=== PATIENT | female | born 1930 | race African-American/Black ===

== ENCOUNTER 2017-04-19 16:06 | Inpatient (IN) | payer MEDICARE ==
[~2017-04-19] VITALS: Ht 167.6 cm; Wt 49.4 kg
[~2017-04-19 16:06] MED LIST: ATENOLOL; HCTZ; KLOR-CON; LEVOTHYROXINE; LISINOPRIL; PROVASTATIN
[2017-04-19] MEDS ORDERED: FUROSEMIDE 40MG/4ML VIAL IVP ONE (17:30)
[2017-04-19 18:13] LABS: MEAN CORPUSCULAR HEMOGLOBIN 18.1 pg (28.0-32.0); MEAN CORPUSCULAR VOLUME 65.8 fL (81.0-99.0); MEAN PLATELET VOLUME 8.6 fl (7.4-10.4); PLATELET 340 x1000/uL (130-400); RED BLOOD CELL COUNT 3.01 mill/uL (4.2-5.4)
[2017-04-19 18:20] LABS: INR 1.3; PROTHROMBIN TIME 13.8 sec (9.4-11.6)
[2017-04-19 18:24] LABS: HEMATOCRIT. 19.8 % (36.0-48.0); HEMOGLOBIN. 5.5 g/dL (12.0-16.0)
[2017-04-19 18:28] LABS: CARBON DIOXIDE 30 mEq/L (21-32); CHLORIDE 105 mEq/L (98-107)
[2017-04-19 19:01] LABS: NUCLEATED RED BLOOD CELLS 1 /100 WBC; PLATELET ESTIMATE NORMAL
[2017-04-19 23:00] VITALS: BP 105/57
[2017-04-20] VITALS (11 sets, daily range): BP systolic 90–118; BP diastolic 49–73
[2017-04-20] MEDS ORDERED: FUROSEMIDE 20MG/2ML VIAL IVP NR
[2017-04-20] MEDS ORDERED: ACETAMINOPHEN 325MG TABLET PO PRN
[2017-04-20] MEDS ORDERED: FURO-152 PO (01:01)
[2017-04-20] MEDS ORDERED: CHOL100046 PO (01:01)
[2017-04-20] MEDS ORDERED: LEVO100T9 PO (09:23)
[2017-04-20] MEDS ORDERED: MEDICATION NOT ON FORMULARY EA (Cholecalciferol (Vitamin D) 1 CAP) PO SCH (09:30)
[2017-04-20 10:11] LABS: HEMATOCRIT. 22.7 % (36.0-48.0); MEAN CORPUSCULAR HEMOGLOBIN 19.2 pg (28.0-32.0); MEAN CORPUSCULAR VOLUME 67.3 fL (81.0-99.0); MEAN PLATELET VOLUME 9.1 fl (7.4-10.4); PLATELET 322 x1000/uL (130-400); RED BLOOD CELL COUNT 3.37 mill/uL (4.2-5.4); RED CELL DISTRIBUTION WIDTH 26.9 % (11.6-14.6)
[2017-04-20 10:18] LABS: HEMOGLOBIN. 6.5 g/dL (12.0-16.0)
[2017-04-20] MEDS: LEVOTHYROXINE SODIUM 100MCG TABLET PO SCH (11:55)
[2017-04-20] MEDS: FUROSEMIDE 40MG TABLET PO SCH (11:55)
[2017-04-20] MEDS: CHOLECALCIFEROL (D3) 1000 UNIT TABLET PO SCH (11:55)
[2017-04-20] MEDS: PANTOPRAZOLE 40MG DR TABLET PO SCH (11:55)
[2017-04-20] MEDS ORDERED: MAGNESIUM HYDROXIDE 400MG/5ML 30ML UDC PO NR (14:38)
[2017-04-20 16:51] LABS: TOTAL IRON BINDING CAPACITY 370 ug/dL (250-450)
[2017-04-20 18:06] LABS: FOLIC ACID (FOLATE) SERUM 8.1 ng/mL (>5.38)
[2017-04-20] MEDS: TEMAZEPAM 15MG CAPSULE PO PRN (23:20)
[2017-04-21] VITALS: BP 120/76
[2017-04-21 00:57] LABS: HEMATOCRIT 25.3 % (36.0-48.0); HEMOGLOBIN 7.6 g/dL (12.0-16.0)
[2017-04-21 04:00] VITALS: BP 93/56
[2017-04-21 06:47] LABS: NUCLEATED RED BLOOD CELLS 1 /100 WBC; PLATELET ESTIMATE NORMAL
[2017-04-21] MEDS: PANTOPRAZOLE 40MG DR TABLET PO SCH (06:51)
[2017-04-21] MEDS: LEVOTHYROXINE SODIUM 100MCG TABLET PO SCH (06:51)
[2017-04-21 08:00] VITALS: BP 102/63
[2017-04-21] MEDS: CHOLECALCIFEROL (D3) 1000 UNIT TABLET PO SCH (08:45)
[2017-04-21] MEDS: FUROSEMIDE 40MG TABLET PO SCH (08:45)
[2017-04-21 12:00] VITALS: BP 97/58
[2017-04-21 16:00] VITALS: BP 98/61
[2017-04-21 21:00] VITALS: BP 102/60
[2017-04-21] MEDS: TEMAZEPAM 15MG CAPSULE PO PRN (23:54)
[2017-04-22] VITALS: BP 104/63
[2017-04-22 04:00] VITALS: BP 97/60
[2017-04-22] MEDS: PANTOPRAZOLE 40MG DR TABLET PO SCH (06:27)
[2017-04-22] MEDS: LEVOTHYROXINE SODIUM 100MCG TABLET PO SCH (06:27)
[2017-04-22 08:00] VITALS: BP 104/68
[2017-04-22] MEDS: FUROSEMIDE 40MG TABLET PO SCH (08:51)
[2017-04-22] MEDS: CHOLECALCIFEROL (D3) 1000 UNIT TABLET PO SCH (08:51)
[2017-04-22 12:00] VITALS: BP 124/74
[2017-04-22 16:00] VITALS: BP 110/76
[2017-04-22] MEDS: ONDANSETRON HCL 4MG/2ML VIAL IV PRN (16:37)
[2017-04-22 20:00] VITALS: BP 90/51
[2017-04-22] MEDS: SODIUM CHLORIDE 0.9% 1,000 ML IV SCH (21:35)
[2017-04-23] VITALS (11 sets, daily range): BP systolic 86–146; BP diastolic 54–88
[2017-04-23 06:03] LABS: BG CARBOXYHEMOGLOBIN 1.1 % (0.5-1.5); BG DEOXYHEMOGLOBIN 0.2 % (0.0-5.0); BG FRACTION INSPIRED OXYGEN 100; BG HCO3 ACT 30.6 mmol/L (22.0-26.0); BG METHEMOGLOBIN 0.5 % (0.0-1.5); BG OXYGEN SATURATION 99.8 % (92.0-98.5); BG OXYHEMOGLOBIN 98.2 % (94.0-97.0); BG PCO2 67.3 mmHg (35.0-45.0); BG PH 7.276 (7.350-7.450); BG PO2 241.9 mmHg (75.0-100.0); BG SAMPLE SITE RIGHT BRACHIAL; BG TOTAL HEMOGLOBIN 8.1 g/dL (12.0-18.0); BG VENT MODE MASK - NRB
[2017-04-23] MEDS: LEVOTHYROXINE SODIUM 100MCG TABLET PO SCH (09:16)
[2017-04-23] MEDS: PANTOPRAZOLE 40MG DR TABLET PO SCH (09:16)
[2017-04-23] MEDS: SODIUM CHLORIDE 0.9% 1,000 ML IV SCH (09:17)
[2017-04-23 09:22] LABS: BG BASE EXCESS 1.6 mmol/L (-2.0-2.0); BG FRACTION INSPIRED OXYGEN 100; BG HCO3 ACT 30.5 mmol/L (22.0-26.0); BG METHEMOGLOBIN 0.7 % (0.0-1.5); BG OXYHEMOGLOBIN 98.3 % (94.0-97.0); BG PCO2 83.1 mmHg (35.0-45.0); BG PH 7.183 (7.350-7.450); BG PO2 342.9 mmHg (75.0-100.0); BG SAMPLE SITE RIGHT BRACHIAL; BG TOTAL HEMOGLOBIN 7.3 g/dL (12.0-18.0); BG VENT MODE MASK - NRB
[2017-04-23 09:59] LABS: HEMATOCRIT. 26.8 % (36.0-48.0); HEMOGLOBIN. 7.5 g/dL (12.0-16.0); MEAN CORPUSCULAR HEMOGLOBIN 20.5 pg (28.0-32.0); MEAN CORPUSCULAR VOLUME 73.8 fL (81.0-99.0); PLATELET 328 x1000/uL (130-400); RED BLOOD CELL COUNT 3.64 mill/uL (4.2-5.4); RED CELL DISTRIBUTION WIDTH 27.4 % (11.6-14.6)
[2017-04-23 10:28] LABS: TROPONIN I 2.3 ng/mL (0.00-0.04)
[2017-04-23] MEDS ORDERED: FUROSEMIDE 40MG/4ML VIAL IVP NR (10:45)
[2017-04-23] MEDS: SODIUM CHLORIDE 0.45% 1,000 ML IV SCH (11:40)
[2017-04-23] MEDS: CHOLECALCIFEROL (D3) 1000 UNIT TABLET PO SCH (11:44)
[2017-04-23 14:02] LABS: NUCLEATED RED BLOOD CELLS 1 /100 WBC; PLATELET ESTIMATE NORMAL
[2017-04-23] MEDS ORDERED: SORBITOL 70% SOLN 30ML PO NR (15:15)
[2017-04-23] MEDS: SENNOSIDES/DOCUSATE SOD 8.6/50MG TABLET PO SCH (17:16)
[2017-04-23] MEDS ORDERED: SODIUM POLYSTYRENE SULFONATE 15 G/60 ML BOT PO NR (18:45)
[2017-04-23 19:12] LABS: BG BASE EXCESS 4.8 mmol/L (-2.0-2.0); BG CARBOXYHEMOGLOBIN 0.9 % (0.5-1.5); BG DEOXYHEMOGLOBIN 6.2 % (0.0-5.0); BG FRACTION INSPIRED OXYGEN 28; BG HCO3 ACT 32.4 mmol/L (22.0-26.0); BG METHEMOGLOBIN 0.5 % (0.0-1.5); BG OXYGEN SATURATION 93.7 % (92.0-98.5); BG OXYHEMOGLOBIN 92.4 % (94.0-97.0); BG PCO2 70.1 mmHg (35.0-45.0); BG PH 7.283 (7.350-7.450); BG PO2 73.8 mmHg (75.0-100.0); BG SAMPLE SITE RIGHT BRACHIAL; BG TOTAL HEMOGLOBIN 7.7 g/dL (12.0-18.0); BG VENT MODE NASAL CANNULA
[2017-04-24] VITALS (15 sets, daily range): BP systolic 95–125; BP diastolic 51–99
[2017-04-24] MEDS: SODIUM CHLORIDE 0.45% 1,000 ML IV SCH ×2 (06:26→16:51)
[2017-04-24] MEDS: LEVOTHYROXINE SODIUM 100MCG TABLET PO SCH (06:30)
[2017-04-24] MEDS: PANTOPRAZOLE 40MG DR TABLET PO SCH (06:30)
[2017-04-24 07:12] LABS: HEMATOCRIT. 25.3 % (36.0-48.0); MEAN CORPUSCULAR HEMOGLOBIN 20.2 pg (28.0-32.0); MEAN CORPUSCULAR VOLUME 73.5 fL (81.0-99.0); MEAN PLATELET VOLUME 9.1 fl (7.4-10.4); PLATELET 297 x1000/uL (130-400); RED BLOOD CELL COUNT 3.44 mill/uL (4.2-5.4); RED CELL DISTRIBUTION WIDTH 27.1 % (11.6-14.6)
[2017-04-24 08:09] LABS: TROPONIN I 2.6 ng/mL (0.00-0.04)
[2017-04-24] MEDS: CHOLECALCIFEROL (D3) 1000 UNIT TABLET PO SCH (09:10)
[2017-04-24] MEDS: SENNOSIDES/DOCUSATE SOD 8.6/50MG TABLET PO SCH ×2 (09:10→17:05)
[2017-04-24] MEDS ORDERED: LACTULOSE 20G/30ML UDC PO NR (16:00)
[2017-04-24 17:09] LABS: NUCLEATED RED BLOOD CELLS 1 /100 WBC; PLATELET ESTIMATE NORMAL
[2017-04-24 17:26] LABS: BG BASE EXCESS 2.6 mmol/L (-2.0-2.0); BG CARBOXYHEMOGLOBIN 1.1 % (0.5-1.5); BG DEOXYHEMOGLOBIN 31.6 % (0.0-5.0); BG HCO3 ACT 30.2 mmol/L (22.0-26.0); BG METHEMOGLOBIN 0.2 % (0.0-1.5); BG OXYHEMOGLOBIN 67.1 % (94.0-97.0); BG PCO2 64.3 mmHg (35.0-45.0); BG PO2 37.3 mmHg (75.0-100.0); BG SAMPLE SITE RIGHT BRACHIAL; BG TOTAL HEMOGLOBIN 10.1 g/dL (12.0-18.0); BG VENT MODE NASAL CANNULA
[2017-04-24 17:41] LABS: BG BASE EXCESS 3.3 mmol/L (-2.0-2.0); BG CARBOXYHEMOGLOBIN 1.1 % (0.5-1.5); BG DEOXYHEMOGLOBIN 13.3 % (0.0-5.0); BG HCO3 ACT 29.6 mmol/L (22.0-26.0); BG METHEMOGLOBIN 0.4 % (0.0-1.5); BG OXYGEN SATURATION 86.5 % (92.0-98.5); BG OXYHEMOGLOBIN 85.2 % (94.0-97.0); BG PCO2 54.2 mmHg (35.0-45.0); BG PH 7.355 (7.350-7.450); BG PO2 53.4 mmHg (75.0-100.0); BG SAMPLE SITE RIGHT BRACHIAL; BG TOTAL HEMOGLOBIN 9.6 g/dL (12.0-18.0); BG VENT MODE NASAL CANNULA
[2017-04-24 18:41] LABS: HEMATOCRIT 28.6 % (36.0-48.0); HEMOGLOBIN 8.3 g/dL (12.0-16.0)
[2017-04-24 18:47] LABS: INR 1.2; PROTHROMBIN TIME 12.2 sec (9.4-11.6)
[2017-04-24] MEDS: TEMAZEPAM 15MG CAPSULE PO PRN (22:10)
[2017-04-24] MEDS: LORAZEPAM 2MG/ML CPJ IV PRN (22:35)
[2017-04-25] VITALS (34 sets, daily range): BP systolic 89–121; BP diastolic 55–88
[2017-04-25] MEDS: SODIUM CHLORIDE 0.45% 1,000 ML IV SCH ×2 (06:38→18:30)
[2017-04-25 06:57] LABS: HEMATOCRIT. 29.2 % (36.0-48.0); HEMOGLOBIN. 8.4 g/dL (12.0-16.0); MEAN CORPUSCULAR VOLUME 73.1 fL (81.0-99.0); MEAN PLATELET VOLUME 8.8 fl (7.4-10.4); PLATELET 312 x1000/uL (130-400); RED BLOOD CELL COUNT 3.99 mill/uL (4.2-5.4); RED CELL DISTRIBUTION WIDTH 26.7 % (11.6-14.6)
[2017-04-25] MEDS: LEVOTHYROXINE SODIUM 100MCG TABLET PO SCH (07:30)
[2017-04-25] MEDS: PANTOPRAZOLE 40MG DR TABLET PO SCH (07:30)
[2017-04-25] MEDS: SENNOSIDES/DOCUSATE SOD 8.6/50MG TABLET PO SCH ×2 (09:00→17:00)
[2017-04-25] MEDS: CHOLECALCIFEROL (D3) 1000 UNIT TABLET PO SCH (09:00)
[2017-04-25 09:57] LABS: BG BASE EXCESS 5.1 mmol/L (-2.0-2.0); BG DEOXYHEMOGLOBIN 18.8 % (0.0-5.0); BG FRACTION INSPIRED OXYGEN 28; BG HCO3 ACT 33.6 mmol/L (22.0-26.0); BG METHEMOGLOBIN 0.1 % (0.0-1.5); BG OXYHEMOGLOBIN 80.1 % (94.0-97.0); BG PCO2 75.1 mmHg (35.0-45.0); BG PH 7.269 (7.350-7.450); BG PO2 48.7 mmHg (75.0-100.0); BG SAMPLE SITE LEFT BRACHIAL; BG TOTAL HEMOGLOBIN 9.9 g/dL (12.0-18.0); BG VENT MODE NASAL CANNULA
[2017-04-25 10:06] LABS: AMMONIA 38 uMol/L (<32)
[2017-04-25 11:17] LABS: PLATELET ESTIMATE NORMAL
[2017-04-25 11:50] LABS: BG BASE EXCESS 3.3 mmol/L (-2.0-2.0); BG BILEVEL POS AIRWAY PRESSURE ST=15/5; BG CARBOXYHEMOGLOBIN 0.7 % (0.5-1.5); BG DEOXYHEMOGLOBIN 1.6 % (0.0-5.0); BG FRACTION INSPIRED OXYGEN 50; BG HCO3 ACT 31.8 mmol/L (22.0-26.0); BG METHEMOGLOBIN 0.5 % (0.0-1.5); BG OXYGEN SATURATION 98.4 % (92.0-98.5); BG OXYHEMOGLOBIN 97.2 % (94.0-97.0); BG PCO2 74.3 mmHg (35.0-45.0); BG PH 7.249 (7.350-7.450); BG PO2 132.2 mmHg (75.0-100.0); BG PRESSURE SUPPORT 10; BG SAMPLE SITE RIGHT BRACHIAL; BG TOTAL HEMOGLOBIN 9.4 g/dL (12.0-18.0); BG VENT MODE MASK - BIPAP; BG VENT RATE 20 set
[2017-04-25] MEDS ORDERED: METHYLPREDNISOLONE SOD SUCC 40 MG/ML VIAL IV SCH (12:30)
[2017-04-25] MEDS ORDERED: IPRATROPIUM/ALBUTEROL 0.5-3(2.5)MG/3ML NEB HHN SCH (12:30)
[2017-04-25] MEDS: LORAZEPAM 2MG/ML CPJ IV PRN ×3 (13:20→20:08)
[2017-04-25 15:22] LABS: BG BASE EXCESS 3.5 mmol/L (-2.0-2.0); BG BILEVEL POS AIRWAY PRESSURE ST=20/5; BG DEOXYHEMOGLOBIN 2.1 % (0.0-5.0); BG FRACTION INSPIRED OXYGEN 45; BG HCO3 ACT 32.6 mmol/L (22.0-26.0); BG METHEMOGLOBIN 0.3 % (0.0-1.5); BG OXYGEN SATURATION 97.9 % (92.0-98.5); BG OXYHEMOGLOBIN 96.6 % (94.0-97.0); BG PCO2 81.1 mmHg (35.0-45.0); BG PH 7.222 (7.350-7.450); BG PO2 113.1 mmHg (75.0-100.0); BG PRESSURE SUPPORT 15; BG SAMPLE SITE RIGHT BRACHIAL; BG TOTAL HEMOGLOBIN 9.5 g/dL (12.0-18.0); BG VENT MODE MASK - BIPAP; BG VENT RATE 20 set
[2017-04-25] MEDS ORDERED: ETOMIDATE 2MG/ML 10ML VIAL IV ONE (16:30)
[2017-04-25] MEDS ORDERED: SUCCINYLCHOLINE CHLORIDE 200MG/10ML VIAL IV ONE (16:30)
[2017-04-25 16:53] LABS: BG BASE EXCESS 0.3 mmol/L (-2.0-2.0); BG CARBOXYHEMOGLOBIN 0.3 % (0.5-1.5); BG DEOXYHEMOGLOBIN 0.3 % (0.0-5.0); BG FRACTION INSPIRED OXYGEN 100; BG HCO3 ACT 25.1 mmol/L (22.0-26.0); BG METHEMOGLOBIN 0.6 % (0.0-1.5); BG OXYGEN SATURATION 99.7 % (92.0-98.5); BG OXYHEMOGLOBIN 98.8 % (94.0-97.0); BG PCO2 41.3 mmHg (35.0-45.0); BG PH 7.402 (7.350-7.450); BG PO2 420.8 mmHg (75.0-100.0); BG SAMPLE SITE RIGHT BRACHIAL; BG TIDAL VOLUME(mL) 500 mL; BG TOTAL HEMOGLOBIN 9.5 g/dL (12.0-18.0); BG VENT MODE VENT - A/C; BG VENT RATE 20 set
[2017-04-25] MEDS: ONDANSETRON HCL 4MG/2ML VIAL IV PRN ×2 (20:05→20:07)
[2017-04-25] MEDS: METHYLPREDNISOLONE SOD SUCC 40 MG/ML VIAL IV SCH (22:23)
[2017-04-25] MEDS: SILDENAFIL CITRATE 20MG TABLET PO SCH (22:24)
[2017-04-26] VITALS (75 sets, daily range): BP systolic 71–124; BP diastolic 30–83
[2017-04-26] MEDS: LORAZEPAM 2MG/ML CPJ IV PRN ×4 (04:07→23:57)
[2017-04-26] MEDS: ONDANSETRON HCL 4MG/2ML VIAL IV PRN ×2 (04:07→23:58)
[2017-04-26 05:48] LABS: HEMATOCRIT. 28.4 % (36.0-48.0); HEMOGLOBIN. 8.7 g/dL (12.0-16.0); MEAN CORPUSCULAR HEMOGLOBIN 22.1 pg (28.0-32.0); MEAN CORPUSCULAR VOLUME 71.9 fL (81.0-99.0); MEAN PLATELET VOLUME 9.2 fl (7.4-10.4); PLATELET 279 x1000/uL (130-400); RED BLOOD CELL COUNT 3.94 mill/uL (4.2-5.4); RED CELL DISTRIBUTION WIDTH 27.5 % (11.6-14.6)
[2017-04-26] MEDS: SILDENAFIL CITRATE 20MG TABLET PO SCH ×3 (06:47→21:18)
[2017-04-26] MEDS: METHYLPREDNISOLONE SOD SUCC 40 MG/ML VIAL IV SCH ×3 (06:48→21:17)
[2017-04-26] MEDS: PANTOPRAZOLE 40MG DR TABLET PO SCH (06:48)
[2017-04-26] MEDS: FUROSEMIDE 40MG/4ML VIAL IVP SCH ×2 (06:48→17:15)
[2017-04-26] MEDS: LEVOTHYROXINE SODIUM 100MCG TABLET PO SCH (06:48)
[2017-04-26 07:18] LABS: TROPONIN I 2.3 ng/mL (0.00-0.04)
[2017-04-26] MEDS ORDERED: LIDOCAINE HCL 1% 20ML VIAL (Pyxis) INJ ONE (09:06)
[2017-04-26] MEDS: SENNOSIDES/DOCUSATE SOD 8.6/50MG TABLET PO SCH ×2 (12:19→17:15)
[2017-04-26] MEDS: CHOLECALCIFEROL (D3) 1000 UNIT TABLET PO SCH (12:19)
[2017-04-26] MEDS: NOREPINEPHRINE 4 MG in DEXT 5% WATER 246 ML IV PRN (13:06)
[2017-04-26 15:53] LABS: PLATELET ESTIMATE NORMAL
[2017-04-26 22:21] LABS: BG BASE EXCESS 8.3 mmol/L (-2.0-2.0); BG CARBOXYHEMOGLOBIN 0.5 % (0.5-1.5); BG DEOXYHEMOGLOBIN 10.6 % (0.0-5.0); BG FRACTION INSPIRED OXYGEN 35; BG HCO3 ACT 30.7 mmol/L (22.0-26.0); BG METHEMOGLOBIN 0.3 % (0.0-1.5); BG OXYGEN SATURATION 89.3 % (92.0-98.5); BG OXYHEMOGLOBIN 88.6 % (94.0-97.0); BG PCO2 34.3 mmHg (35.0-45.0); BG PO2 51.1 mmHg (75.0-100.0); BG SAMPLE SITE RIGHT RADIAL; BG TIDAL VOLUME(mL) 450 mL; BG VENT MODE VENT - A/C; BG VENT RATE 14 set
[2017-04-27] VITALS (87 sets, daily range): BP systolic 79–131; BP diastolic 51–98
[2017-04-27] MEDS: IPRATROPIUM/ALBUTEROL 0.5-3(2.5)MG/3ML NEB HHN PRN ×2 (00:25→05:15)
[2017-04-27 05:53] LABS: HEMATOCRIT. 32.3 % (36.0-48.0); HEMOGLOBIN. 9.6 g/dL (12.0-16.0); MEAN CORPUSCULAR HEMOGLOBIN 21.2 pg (28.0-32.0); MEAN CORPUSCULAR VOLUME 71.6 fL (81.0-99.0); MEAN PLATELET VOLUME 8.9 fl (7.4-10.4); PLATELET 279 x1000/uL (130-400); RED BLOOD CELL COUNT 4.51 mill/uL (4.2-5.4); RED CELL DISTRIBUTION WIDTH 28.5 % (11.6-14.6)
[2017-04-27] MEDS: FUROSEMIDE 40MG/4ML VIAL IVP SCH (06:14)
[2017-04-27] MEDS: METHYLPREDNISOLONE SOD SUCC 40 MG/ML VIAL IV SCH ×2 (06:14→13:36)
[2017-04-27] MEDS: LEVOTHYROXINE SODIUM 100MCG TABLET PO SCH (06:14)
[2017-04-27] MEDS: PANTOPRAZOLE 40MG DR TABLET PO SCH (06:15)
[2017-04-27] MEDS: SILDENAFIL CITRATE 20MG TABLET PO SCH ×3 (06:15→21:08)
[2017-04-27 08:07] LABS: BG BASE EXCESS 4.6 mmol/L (-2.0-2.0); BG CARBOXYHEMOGLOBIN 0.2 % (0.5-1.5); BG DEOXYHEMOGLOBIN 2.5 % (0.0-5.0); BG FRACTION INSPIRED OXYGEN 50; BG HCO3 ACT 28.6 mmol/L (22.0-26.0); BG METHEMOGLOBIN 0.5 % (0.0-1.5); BG OXYGEN SATURATION 97.5 % (92.0-98.5); BG OXYHEMOGLOBIN 96.8 % (94.0-97.0); BG PCO2 40.3 mmHg (35.0-45.0); BG PH 7.469 (7.350-7.450); BG PO2 97.2 mmHg (75.0-100.0); BG SAMPLE SITE RIGHT RADIAL; BG TIDAL VOLUME(mL) 400 mL; BG TOTAL HEMOGLOBIN 9.6 g/dL (12.0-18.0); BG VENT MODE VENT - A/C; BG VENT RATE 14 set
[2017-04-27] MEDS: SENNOSIDES/DOCUSATE SOD 8.6/50MG TABLET PO SCH ×2 (09:04→18:16)
[2017-04-27] MEDS: CHOLECALCIFEROL (D3) 1000 UNIT TABLET PO SCH (09:04)
[2017-04-27] MEDS: NOREPINEPHRINE 4 MG in DEXT 5% WATER 246 ML IV PRN (09:04)
[2017-04-27 09:35] LABS: PLATELET ESTIMATE NORMAL
[2017-04-27] MEDS: PIPERACILLIN/TAZ 3.375G PREMIX 50 ML IV SCH ×2 (10:34→18:16)
[2017-04-27] MEDS ORDERED: VANCOMYCIN 1 G PREMIX 200 ML IV SCH (11:00)
[2017-04-27] MEDS ORDERED: MAGNESIUM 2 G PREMIX 50 ML IV SCH (12:00)
[2017-04-27] MEDS: MAGNESIUM OXIDE 400MG TABLET NG SCH (13:36)
[2017-04-27] MEDS: LORAZEPAM 2MG/ML CPJ IV PRN ×2 (16:30→21:34)
[2017-04-28] VITALS (94 sets, daily range): BP systolic 78–135; BP diastolic 49–91
[2017-04-28] MEDS: PIPERACILLIN/TAZ 3.375G PREMIX 50 ML IV SCH ×3 (01:31→17:25)
[2017-04-28] MEDS: SILDENAFIL CITRATE 20MG TABLET PO SCH ×3 (05:22→21:21)
[2017-04-28] MEDS: LEVOTHYROXINE SODIUM 100MCG TABLET PO SCH (05:23)
[2017-04-28 05:43] LABS: HEMATOCRIT. 29.9 % (36.0-48.0); HEMOGLOBIN. 8.9 g/dL (12.0-16.0); MEAN CORPUSCULAR HEMOGLOBIN 21.2 pg (28.0-32.0); MEAN CORPUSCULAR VOLUME 71.1 fL (81.0-99.0); MEAN PLATELET VOLUME 8.8 fl (7.4-10.4); PLATELET 262 x1000/uL (130-400); RED BLOOD CELL COUNT 4.21 mill/uL (4.2-5.4); RED CELL DISTRIBUTION WIDTH 27.7 % (11.6-14.6)
[2017-04-28 07:10] LABS: T4 FREE 0.89 ng/dL (0.76-1.46)
[2017-04-28 07:27] LABS: PHOSPHORUS 2.4 mg/dL (2.5-4.9)
[2017-04-28] MEDS: IPRATROPIUM/ALBUTEROL 0.5-3(2.5)MG/3ML NEB HHN PRN ×4 (08:02→20:36)
[2017-04-28] MEDS: METHYLPREDNISOLONE SOD SUCC 40 MG/ML VIAL IV SCH (08:05)
[2017-04-28] MEDS: SENNOSIDES/DOCUSATE SOD 8.6/50MG TABLET PO SCH ×2 (08:06→16:48)
[2017-04-28] MEDS: MAGNESIUM OXIDE 400MG TABLET NG SCH (08:06)
[2017-04-28] MEDS: CHOLECALCIFEROL (D3) 1000 UNIT TABLET PO SCH (08:06)
[2017-04-28] MEDS ORDERED: FUROSEMIDE 40MG/4ML VIAL IVP SCH (09:00)
[2017-04-28] MEDS ORDERED: VANCOMYCIN 750 MG PREMIX 150 ML IV SCH (10:00)
[2017-04-28] MEDS: LORAZEPAM 2MG/ML CPJ IV PRN ×4 (10:43→22:36)
[2017-04-28 14:06] LABS: BG BASE EXCESS 10.8 mmol/L (-2.0-2.0); BG CARBOXYHEMOGLOBIN 0.4 % (0.5-1.5); BG DEOXYHEMOGLOBIN 5.6 % (0.0-5.0); BG FRACTION INSPIRED OXYGEN 50; BG HCO3 ACT 33.5 mmol/L (22.0-26.0); BG METHEMOGLOBIN 0.2 % (0.0-1.5); BG OXYGEN SATURATION 94.4 % (92.0-98.5); BG OXYHEMOGLOBIN 93.8 % (94.0-97.0); BG PH 7.575 (7.350-7.450); BG PO2 64.8 mmHg (75.0-100.0); BG SAMPLE SITE LEFT RADIAL; BG TIDAL VOLUME(mL) 400 mL; BG VENT MODE VENT - A/C; BG VENT RATE 14 set
[2017-04-28] MEDS ORDERED: FUROSEMIDE 40MG/4ML VIAL IVP NR (15:45)
[2017-04-28] MEDS: LACTULOSE 20G/30ML UDC PO PRN (16:47)
[2017-04-28] MEDS: MORPHINE SULFATE 4 MG/ML CPJ (NOT FOR IM USE) IV PRN (22:14)
[2017-04-28] MEDS: VANCOMYCIN 750 MG PREMIX 150 ML IV SCH (23:29)
[2017-04-28 23:53] LABS: PLATELET ESTIMATE NORMAL
[2017-04-29] VITALS (88 sets, daily range): BP systolic 72–123; BP diastolic 47–85
[2017-04-29] MEDS: IPRATROPIUM/ALBUTEROL 0.5-3(2.5)MG/3ML NEB HHN PRN ×6 (00:14→23:52)
[2017-04-29] MEDS: LORAZEPAM 2MG/ML CPJ IV PRN ×3 (00:37→22:33)
[2017-04-29] MEDS: PIPERACILLIN/TAZ 3.375G PREMIX 50 ML IV SCH ×3 (01:35→17:18)
[2017-04-29] MEDS: MORPHINE SULFATE 4 MG/ML CPJ (NOT FOR IM USE) IV PRN ×3 (02:57→22:01)
[2017-04-29 05:18] LABS: HEMATOCRIT. 29.6 % (36.0-48.0); HEMOGLOBIN. 8.9 g/dL (12.0-16.0); MEAN CORPUSCULAR HEMOGLOBIN 21.5 pg (28.0-32.0); MEAN CORPUSCULAR VOLUME 71.5 fL (81.0-99.0); MEAN PLATELET VOLUME 8.5 fl (7.4-10.4); PLATELET 248 x1000/uL (130-400); RED BLOOD CELL COUNT 4.13 mill/uL (4.2-5.4); RED CELL DISTRIBUTION WIDTH 28.3 % (11.6-14.6)
[2017-04-29 05:34] LABS: CARBON DIOXIDE 36 mEq/L (21-32); CHLORIDE 99 mEq/L (98-107)
[2017-04-29] MEDS: LEVOTHYROXINE SODIUM 100MCG TABLET PO SCH (06:07)
[2017-04-29] MEDS: SILDENAFIL CITRATE 20MG TABLET PO SCH ×3 (06:07→22:00)
[2017-04-29] MEDS: NOREPINEPHRINE 4 MG in DEXT 5% WATER 246 ML IV PRN (07:03)
[2017-04-29 07:27] LABS: BG BASE EXCESS 9.3 mmol/L (-2.0-2.0); BG CARBOXYHEMOGLOBIN 0.2 % (0.5-1.5); BG DEOXYHEMOGLOBIN 1.8 % (0.0-5.0); BG FRACTION INSPIRED OXYGEN 50; BG HCO3 ACT 35.1 mmol/L (22.0-26.0); BG METHEMOGLOBIN 0.3 % (0.0-1.5); BG OXYGEN SATURATION 98.2 % (92.0-98.5); BG OXYHEMOGLOBIN 97.7 % (94.0-97.0); BG PH 7.423 (7.350-7.450); BG PO2 115.8 mmHg (75.0-100.0); BG SAMPLE SITE RIGHT RADIAL; BG TIDAL VOLUME(mL) 400 mL; BG TOTAL HEMOGLOBIN 9.8 g/dL (12.0-18.0); BG VENT MODE VENT - A/C; BG VENT RATE 14 set
[2017-04-29] MEDS: METHYLPREDNISOLONE SOD SUCC 40 MG/ML VIAL IV SCH (08:18)
[2017-04-29] MEDS: CHOLECALCIFEROL (D3) 1000 UNIT TABLET PO SCH (08:19)
[2017-04-29] MEDS: MAGNESIUM OXIDE 400MG TABLET NG SCH (08:19)
[2017-04-29] MEDS: SENNOSIDES/DOCUSATE SOD 8.6/50MG TABLET PO SCH ×2 (08:19→17:19)
[2017-04-29] MEDS: PANTOPRAZOLE SODIUM 40 MG/VIAL IV SCH (08:19)
[2017-04-29 08:39] LABS: PLATELET ESTIMATE NORMAL
[2017-04-29] MEDS ORDERED: FUROSEMIDE 100MG/10ML VIAL IVP SCH (09:00)
[2017-04-29] MEDS: VANCOMYCIN 750 MG PREMIX 150 ML IV SCH (18:02)
[2017-04-29] MEDS ORDERED: FUROSEMIDE 40MG/4ML VIAL IVP NR (19:45)
[2017-04-29] MEDS: SODIUM CHL 0.45% + KCL 20MEQ/L 1,000 ML IV SCH (21:44)
[2017-04-30] VITALS (89 sets, daily range): BP systolic 34–145; BP diastolic 13–102
[2017-04-30] MEDS: MORPHINE SULFATE 4 MG/ML CPJ (NOT FOR IM USE) IV PRN ×4 (00:30→14:22)
[2017-04-30] MEDS: NOREPINEPHRINE 4 MG in DEXT 5% WATER 246 ML IV PRN ×2 (01:56→20:41)
[2017-04-30] MEDS: PIPERACILLIN/TAZ 3.375G PREMIX 50 ML IV SCH ×3 (01:57→17:16)
[2017-04-30] MEDS: IPRATROPIUM/ALBUTEROL 0.5-3(2.5)MG/3ML NEB HHN PRN ×3 (03:51→19:57)
[2017-04-30] MEDS: LORAZEPAM 2MG/ML CPJ IV PRN ×4 (05:51→23:55)
[2017-04-30] MEDS: LEVOTHYROXINE SODIUM 100MCG TABLET PO SCH (05:52)
[2017-04-30] MEDS: SILDENAFIL CITRATE 20MG TABLET PO SCH ×3 (05:52→22:57)
[2017-04-30 05:59] LABS: HEMATOCRIT. 34.7 % (36.0-48.0); HEMOGLOBIN. 10.4 g/dL (12.0-16.0); MEAN CORPUSCULAR HEMOGLOBIN 21.6 pg (28.0-32.0); MEAN CORPUSCULAR VOLUME 72.4 fL (81.0-99.0); MEAN PLATELET VOLUME 9.1 fl (7.4-10.4); PLATELET 281 x1000/uL (130-400); RED CELL DISTRIBUTION WIDTH 28.3 % (11.6-14.6)
[2017-04-30 06:35] LABS: CHLORIDE 95 mEq/L (98-107)
[2017-04-30 07:11] LABS: CARBON DIOXIDE 37 mEq/L (21-32)
[2017-04-30] MEDS: METHYLPREDNISOLONE SOD SUCC 40 MG/ML VIAL IV SCH (08:40)
[2017-04-30] MEDS: SENNOSIDES/DOCUSATE SOD 8.6/50MG TABLET PO SCH ×2 (08:40→17:17)
[2017-04-30] MEDS: MAGNESIUM OXIDE 400MG TABLET NG SCH (08:40)
[2017-04-30] MEDS: PANTOPRAZOLE SODIUM 40 MG/VIAL IV SCH (08:40)
[2017-04-30] MEDS: CHOLECALCIFEROL (D3) 1000 UNIT TABLET PO SCH (08:40)
[2017-04-30] MEDS: FUROSEMIDE 40MG/4ML VIAL IVP SCH (08:40)
[2017-04-30 09:23] LABS: PLATELET ESTIMATE NORMAL
[2017-04-30] MEDS: VANCOMYCIN 750 MG PREMIX 150 ML IV SCH (11:23)
[2017-04-30] MEDS: MIDODRINE HCL 2.5MG TABLET NG SCH ×2 (13:58→17:16)
[2017-04-30] MEDS: METOCLOPRAMIDE HCL 10MG/2ML VIAL IV SCH (20:41)
[2017-05-01] VITALS (100 sets, daily range): BP systolic 78–143; BP diastolic 35–104
[2017-05-01] MEDS: IPRATROPIUM/ALBUTEROL 0.5-3(2.5)MG/3ML NEB HHN PRN ×2 (00:03→04:17)
[2017-05-01] MEDS: PIPERACILLIN/TAZ 3.375G PREMIX 50 ML IV SCH ×3 (01:45→17:40)
[2017-05-01] MEDS: METOCLOPRAMIDE HCL 10MG/2ML VIAL IV SCH ×4 (01:45→17:40)
[2017-05-01] MEDS: MORPHINE SULFATE 4 MG/ML CPJ (NOT FOR IM USE) IV PRN ×4 (03:52→22:39)
[2017-05-01] MEDS: LORAZEPAM 2MG/ML CPJ IV PRN ×5 (04:15→19:30)
[2017-05-01] MEDS: VANCOMYCIN 750 MG PREMIX 150 ML IV SCH (05:44)
[2017-05-01 06:10] LABS: BASOPHILS % 0.4 % (0.0-2.0); EOSINOPHILS % 0.7 % (0.0-5.0); HEMATOCRIT. 31.7 % (36.0-48.0); HEMOGLOBIN. 9.7 g/dL (12.0-16.0); LYMPHOCYTES % 8.6 % (20.0-50.0); MEAN CORPUSCULAR VOLUME 71.9 fL (81.0-99.0); MEAN PLATELET VOLUME 8.9 fl (7.4-10.4); MONOCYTES % 6.3 % (2.0-8.0); PLATELET 255 x1000/uL (130-400); RED CELL DISTRIBUTION WIDTH 28.8 % (11.6-14.6)
[2017-05-01] MEDS: LEVOTHYROXINE SODIUM 100MCG TABLET PO SCH (06:34)
[2017-05-01] MEDS: SILDENAFIL CITRATE 20MG TABLET PO SCH ×3 (06:35→22:05)
[2017-05-01] MEDS: SODIUM CHL 0.45% + KCL 20MEQ/L 1,000 ML IV SCH (06:35)
[2017-05-01 07:26] LABS: PHOSPHORUS 1.9 mg/dL (2.5-4.9)
[2017-05-01 07:44] LABS: BG BASE EXCESS 10.1 mmol/L (-2.0-2.0); BG CARBOXYHEMOGLOBIN 0.7 % (0.5-1.5); BG DEOXYHEMOGLOBIN 1.2 % (0.0-5.0); BG FRACTION INSPIRED OXYGEN 45; BG METHEMOGLOBIN 0.3 % (0.0-1.5); BG OXYGEN SATURATION 98.8 % (92.0-98.5); BG OXYHEMOGLOBIN 97.8 % (94.0-97.0); BG PCO2 49.1 mmHg (35.0-45.0); BG PH 7.471 (7.350-7.450); BG PO2 138.8 mmHg (75.0-100.0); BG SAMPLE SITE RIGHT RADIAL; BG TIDAL VOLUME(mL) 450 mL; BG TOTAL HEMOGLOBIN 10.4 g/dL (12.0-18.0); BG VENT MODE VENT - A/C; BG VENT RATE 14 set
[2017-05-01] MEDS: NOREPINEPHRINE 4 MG in DEXT 5% WATER 246 ML IV PRN ×2 (08:06→17:41)
[2017-05-01] MEDS: PANTOPRAZOLE SODIUM 40 MG/VIAL IV SCH (09:31)
[2017-05-01] MEDS: SENNOSIDES/DOCUSATE SOD 8.6/50MG TABLET PO SCH ×2 (09:31→17:40)
[2017-05-01] MEDS: FUROSEMIDE 40MG/4ML VIAL IVP SCH (09:31)
[2017-05-01] MEDS: MAGNESIUM OXIDE 400MG TABLET NG SCH (09:31)
[2017-05-01] MEDS: MIDODRINE HCL 2.5MG TABLET NG SCH ×3 (09:31→17:41)
[2017-05-01] MEDS: METHYLPREDNISOLONE SOD SUCC 40 MG/ML VIAL IV SCH (09:31)
[2017-05-01] MEDS: CHOLECALCIFEROL (D3) 1000 UNIT TABLET PO SCH (09:32)
[2017-05-02] VITALS (97 sets, daily range): BP systolic 77–150; BP diastolic 46–101
[2017-05-02] MEDS: VANCOMYCIN 750 MG PREMIX 150 ML IV SCH (00:03)
[2017-05-02] MEDS: METOCLOPRAMIDE HCL 10MG/2ML VIAL IV SCH ×4 (00:03→17:15)
[2017-05-02] MEDS: LORAZEPAM 2MG/ML CPJ IV PRN ×5 (00:52→20:40)
[2017-05-02] MEDS: IPRATROPIUM/ALBUTEROL 0.5-3(2.5)MG/3ML NEB HHN PRN ×3 (01:53→15:51)
[2017-05-02] MEDS: PIPERACILLIN/TAZ 3.375G PREMIX 50 ML IV SCH ×3 (02:18→17:15)
[2017-05-02] MEDS: MORPHINE SULFATE 4 MG/ML CPJ (NOT FOR IM USE) IV PRN ×2 (02:18→22:22)
[2017-05-02 05:31] LABS: HEMATOCRIT. 29.9 % (36.0-48.0); HEMOGLOBIN. 9.2 g/dL (12.0-16.0); MEAN CORPUSCULAR HEMOGLOBIN 21.9 pg (28.0-32.0); MEAN CORPUSCULAR VOLUME 71.5 fL (81.0-99.0); MEAN PLATELET VOLUME 8.7 fl (7.4-10.4); PLATELET 253 x1000/uL (130-400); RED BLOOD CELL COUNT 4.19 mill/uL (4.2-5.4); RED CELL DISTRIBUTION WIDTH 28.4 % (11.6-14.6)
[2017-05-02] MEDS: LEVOTHYROXINE SODIUM 100MCG TABLET PO SCH (06:25)
[2017-05-02] MEDS: SILDENAFIL CITRATE 20MG TABLET PO SCH ×3 (06:26→21:21)
[2017-05-02 07:02] LABS: NUCLEATED RED BLOOD CELLS 1 /100 WBC; PLATELET ESTIMATE NORMAL
[2017-05-02] MEDS: NOREPINEPHRINE 4 MG in DEXT 5% WATER 246 ML IV PRN (07:26)
[2017-05-02] MEDS: CHOLECALCIFEROL (D3) 1000 UNIT TABLET PO SCH (08:23)
[2017-05-02] MEDS: PANTOPRAZOLE SODIUM 40 MG/VIAL IV SCH (08:23)
[2017-05-02] MEDS: METHYLPREDNISOLONE SOD SUCC 40 MG/ML VIAL IV SCH (08:23)
[2017-05-02] MEDS: SENNOSIDES/DOCUSATE SOD 8.6/50MG TABLET PO SCH ×2 (08:23→17:14)
[2017-05-02] MEDS: MAGNESIUM OXIDE 400MG TABLET NG SCH (08:23)
[2017-05-02] MEDS: MIDODRINE HCL 2.5MG TABLET NG SCH ×3 (08:23→17:15)
[2017-05-02] MEDS: FUROSEMIDE 40MG/4ML VIAL IVP SCH (08:23)
[2017-05-02 08:29] LABS: BG BASE EXCESS 10.9 mmol/L (-2.0-2.0); BG CARBOXYHEMOGLOBIN 0.9 % (0.5-1.5); BG DEOXYHEMOGLOBIN 1.1 % (0.0-5.0); BG FRACTION INSPIRED OXYGEN 45; BG HCO3 ACT 33.8 mmol/L (22.0-26.0); BG METHEMOGLOBIN 0.5 % (0.0-1.5); BG OXYGEN SATURATION 98.9 % (92.0-98.5); BG OXYHEMOGLOBIN 97.5 % (94.0-97.0); BG PCO2 38.3 mmHg (35.0-45.0); BG PH 7.564 (7.350-7.450); BG PO2 124.2 mmHg (75.0-100.0); BG SAMPLE SITE LEFT RADIAL; BG TIDAL VOLUME(mL) 400 mL; BG TOTAL HEMOGLOBIN 10.6 g/dL (12.0-18.0); BG VENT MODE VENT - A/C; BG VENT RATE 14 set
[2017-05-02] MEDS ORDERED: POTASSIUM PHOS,M-BASIC-D-BASIC 15 MMOL in DEXT 5% WATER 245 ML IV NR (10:30)
[2017-05-02] MEDS: LACTULOSE 20G/30ML UDC PO PRN (13:36)
[2017-05-02] MEDS: NOREPINEPHRINE 8 MG in DEXT 5% WATER 242 ML IV PRN (15:13)
[2017-05-02] MEDS: SODIUM CHL 0.45% + KCL 20MEQ/L 1,000 ML IV SCH (17:15)
[2017-05-03] VITALS (100 sets, daily range): BP systolic 73–136; BP diastolic 39–97
[2017-05-03] MEDS: METOCLOPRAMIDE HCL 10MG/2ML VIAL IV SCH ×3 (00:24→21:36)
[2017-05-03] MEDS: PIPERACILLIN/TAZ 3.375G PREMIX 50 ML IV SCH ×3 (01:23→17:01)
[2017-05-03] MEDS: LORAZEPAM 2MG/ML CPJ IV PRN ×3 (01:23→23:43)
[2017-05-03] MEDS: MORPHINE SULFATE 4 MG/ML CPJ (NOT FOR IM USE) IV PRN ×4 (02:27→23:42)
[2017-05-03] MEDS: NOREPINEPHRINE 8 MG in DEXT 5% WATER 242 ML IV PRN ×2 (05:01→22:55)
[2017-05-03 06:11] LABS: HEMATOCRIT. 31.8 % (36.0-48.0); HEMOGLOBIN. 9.6 g/dL (12.0-16.0); MEAN CORPUSCULAR HEMOGLOBIN 21.4 pg (28.0-32.0); MEAN CORPUSCULAR VOLUME 71.4 fL (81.0-99.0); MEAN PLATELET VOLUME 9.7 fl (7.4-10.4); PLATELET 280 x1000/uL (130-400); RED BLOOD CELL COUNT 4.46 mill/uL (4.2-5.4); RED CELL DISTRIBUTION WIDTH 28.1 % (11.6-14.6)
[2017-05-03] MEDS: LEVOTHYROXINE SODIUM 100MCG TABLET PO SCH (07:01)
[2017-05-03] MEDS: SILDENAFIL CITRATE 20MG TABLET PO SCH ×3 (07:01→21:37)
[2017-05-03] MEDS: IPRATROPIUM/ALBUTEROL 0.5-3(2.5)MG/3ML NEB HHN PRN ×2 (08:02→11:59)
[2017-05-03] MEDS: MIDODRINE HCL 2.5MG TABLET NG SCH ×3 (08:26→16:24)
[2017-05-03] MEDS: METHYLPREDNISOLONE SOD SUCC 40 MG/ML VIAL IV SCH (08:26)
[2017-05-03] MEDS: PANTOPRAZOLE SODIUM 40 MG/VIAL IV SCH (08:26)
[2017-05-03] MEDS: FUROSEMIDE 40MG/4ML VIAL IVP SCH (08:26)
[2017-05-03] MEDS: SENNOSIDES/DOCUSATE SOD 8.6/50MG TABLET PO SCH ×2 (08:27→16:24)
[2017-05-03] MEDS: MAGNESIUM OXIDE 400MG TABLET NG SCH (08:27)
[2017-05-03] MEDS: CHOLECALCIFEROL (D3) 1000 UNIT TABLET PO SCH (08:27)
[2017-05-03 09:19] LABS: PLATELET ESTIMATE NORMAL
[2017-05-03] MEDS ORDERED: VANCOMYCIN 750 MG PREMIX 150 ML IV NR (12:00)
[2017-05-03] MEDS ORDERED: METOCLOPRAMIDE HCL 10MG/2ML VIAL IV SCH (14:00)
[2017-05-03] MEDS: SODIUM CHL 0.45% + KCL 20MEQ/L 1,000 ML IV SCH (23:20)
[2017-05-03 23:28] LABS: BG BASE EXCESS 9.1 mmol/L (-2.0-2.0); BG DEOXYHEMOGLOBIN 0.9 % (0.0-5.0); BG FRACTION INSPIRED OXYGEN 45; BG HCO3 ACT 32.2 mmol/L (22.0-26.0); BG METHEMOGLOBIN 0.3 % (0.0-1.5); BG OXYGEN SATURATION 99.1 % (92.0-98.5); BG OXYHEMOGLOBIN 98.8 % (94.0-97.0); BG PH 7.546 (7.350-7.450); BG PO2 156.3 mmHg (75.0-100.0); BG SAMPLE SITE RIGHT RADIAL; BG TIDAL VOLUME(mL) 400 mL; BG TOTAL HEMOGLOBIN 10.5 g/dL (12.0-18.0); BG VENT MODE VENT - A/C; BG VENT RATE 14 set
[2017-05-04] VITALS (94 sets, daily range): BP systolic 64–139; BP diastolic 39–90
[2017-05-04] MEDS: LORAZEPAM 2MG/ML CPJ IV PRN ×4 (01:42→21:18)
[2017-05-04] MEDS: MORPHINE SULFATE 4 MG/ML CPJ (NOT FOR IM USE) IV PRN ×4 (01:43→21:19)
[2017-05-04] MEDS: PIPERACILLIN/TAZ 3.375G PREMIX 50 ML IV SCH ×2 (01:43→09:08)
[2017-05-04] MEDS: METOCLOPRAMIDE HCL 10MG/2ML VIAL IV SCH ×3 (05:32→22:42)
[2017-05-04] MEDS: SILDENAFIL CITRATE 20MG TABLET PO SCH ×3 (05:32→22:47)
[2017-05-04] MEDS: LEVOTHYROXINE SODIUM 100MCG TABLET PO SCH (05:32)
[2017-05-04 05:37] LABS: HEMATOCRIT. 31.7 % (36.0-48.0); HEMOGLOBIN. 9.5 g/dL (12.0-16.0); MEAN CORPUSCULAR HEMOGLOBIN 21.3 pg (28.0-32.0); MEAN CORPUSCULAR VOLUME 71.5 fL (81.0-99.0); MEAN PLATELET VOLUME 8.9 fl (7.4-10.4); PLATELET 266 x1000/uL (130-400); RED BLOOD CELL COUNT 4.43 mill/uL (4.2-5.4); RED CELL DISTRIBUTION WIDTH 28.7 % (11.6-14.6)
[2017-05-04 07:32] LABS: BG CARBOXYHEMOGLOBIN 0.2 % (0.5-1.5); BG DEOXYHEMOGLOBIN 0.6 % (0.0-5.0); BG FRACTION INSPIRED OXYGEN 45; BG HCO3 ACT 33.2 mmol/L (22.0-26.0); BG METHEMOGLOBIN 0.2 % (0.0-1.5); BG OXYGEN SATURATION 99.4 % (92.0-98.5); BG PCO2 44.2 mmHg (35.0-45.0); BG PH 7.494 (7.350-7.450); BG PO2 188.2 mmHg (75.0-100.0); BG SAMPLE SITE RIGHT BRACHIAL; BG TIDAL VOLUME(mL) 400 mL; BG TOTAL HEMOGLOBIN 9.7 g/dL (12.0-18.0); BG VENT MODE VENT - A/C; BG VENT RATE 14 set
[2017-05-04] MEDS: IPRATROPIUM/ALBUTEROL 0.5-3(2.5)MG/3ML NEB HHN PRN ×3 (07:55→15:59)
[2017-05-04] MEDS: METHYLPREDNISOLONE SOD SUCC 40 MG/ML VIAL IV SCH (08:02)
[2017-05-04] MEDS: MIDODRINE HCL 5MG TABLET NG SCH ×3 (08:02→16:12)
[2017-05-04] MEDS: MAGNESIUM OXIDE 400MG TABLET NG SCH (08:02)
[2017-05-04] MEDS: CHOLECALCIFEROL (D3) 1000 UNIT TABLET PO SCH (08:02)
[2017-05-04] MEDS: SENNOSIDES/DOCUSATE SOD 8.6/50MG TABLET PO SCH ×2 (08:02→16:12)
[2017-05-04] MEDS: PANTOPRAZOLE SODIUM 40 MG/VIAL IV SCH (08:02)
[2017-05-04] MEDS: FUROSEMIDE 40MG/4ML VIAL IVP SCH ×2 (08:02→17:23)
[2017-05-04 09:23] LABS: NUCLEATED RED BLOOD CELLS 1 /100 WBC; PLATELET ESTIMATE NORMAL
[2017-05-04] MEDS ORDERED: SORBITOL 70% SOLN 30ML PO NR (13:30)
[2017-05-04] MEDS: NOREPINEPHRINE 8 MG in DEXT 5% WATER 242 ML IV PRN (19:39)
[2017-05-05] VITALS (98 sets, daily range): BP systolic 72–137; BP diastolic 36–100
[2017-05-05] MEDS: IPRATROPIUM/ALBUTEROL 0.5-3(2.5)MG/3ML NEB HHN PRN ×3 (01:24→19:50)
[2017-05-05] MEDS: LORAZEPAM 2MG/ML CPJ IV PRN ×2 (02:22→23:58)
[2017-05-05] MEDS: MORPHINE SULFATE 4 MG/ML CPJ (NOT FOR IM USE) IV PRN ×2 (02:23→23:47)
[2017-05-05] MEDS: SILDENAFIL CITRATE 20MG TABLET PO SCH ×3 (05:56→21:07)
[2017-05-05] MEDS: LEVOTHYROXINE SODIUM 100MCG TABLET PO SCH (05:56)
[2017-05-05] MEDS: METOCLOPRAMIDE HCL 10MG/2ML VIAL IV SCH ×3 (05:56→21:07)
[2017-05-05] MEDS: MAGNESIUM OXIDE 400MG TABLET NG SCH (08:41)
[2017-05-05] MEDS: FUROSEMIDE 40MG/4ML VIAL IVP SCH ×2 (08:41→17:37)
[2017-05-05] MEDS: METHYLPREDNISOLONE SOD SUCC 40 MG/ML VIAL IV SCH (08:41)
[2017-05-05] MEDS: SENNOSIDES/DOCUSATE SOD 8.6/50MG TABLET PO SCH ×2 (08:41→17:34)
[2017-05-05] MEDS: PANTOPRAZOLE SODIUM 40 MG/VIAL IV SCH (08:41)
[2017-05-05] MEDS: MIDODRINE HCL 5MG TABLET NG SCH ×3 (08:42→17:35)
[2017-05-05] MEDS: CHOLECALCIFEROL (D3) 1000 UNIT TABLET PO SCH (09:00)
[2017-05-05 10:35] LABS: HEMATOCRIT. 32.1 % (36.0-48.0); HEMOGLOBIN. 9.7 g/dL (12.0-16.0); MEAN CORPUSCULAR HEMOGLOBIN 21.6 pg (28.0-32.0); MEAN CORPUSCULAR VOLUME 71.1 fL (81.0-99.0); MEAN PLATELET VOLUME 9.4 fl (7.4-10.4); PLATELET 306 x1000/uL (130-400); RED BLOOD CELL COUNT 4.52 mill/uL (4.2-5.4); RED CELL DISTRIBUTION WIDTH 27.8 % (11.6-14.6)
[2017-05-05] MEDS: SODIUM CHL 0.45% + KCL 20MEQ/L 1,000 ML IV SCH (11:43)
[2017-05-05 11:58] LABS: NUCLEATED RED BLOOD CELLS 1 /100 WBC; PLATELET ESTIMATE NORMAL
[2017-05-05 13:06] LABS: BG BASE EXCESS 7.1 mmol/L (-2.0-2.0); BG CARBOXYHEMOGLOBIN 0.5 % (0.5-1.5); BG DEOXYHEMOGLOBIN 1.8 % (0.0-5.0); BG FRACTION INSPIRED OXYGEN 35; BG HCO3 ACT 34.7 mmol/L (22.0-26.0); BG METHEMOGLOBIN 0.5 % (0.0-1.5); BG OXYGEN SATURATION 98.2 % (92.0-98.5); BG OXYHEMOGLOBIN 97.2 % (94.0-97.0); BG PH 7.332 (7.350-7.450); BG PO2 127.5 mmHg (75.0-100.0); BG PRESSURE SUPPORT 15; BG SAMPLE SITE LEFT BRACHIAL; BG TOTAL HEMOGLOBIN 10.7 g/dL (12.0-18.0); BG VENT MODE VENT - CPAP
[2017-05-05] MEDS: NOREPINEPHRINE 8 MG in DEXT 5% WATER 242 ML IV PRN (18:54)
[2017-05-05] MEDS ORDERED: NICARDIPINE 50 MG in SODIUM CHLORIDE 0.9% 230 ML IV PRN (23:15)
[2017-05-06] VITALS (106 sets, daily range): BP systolic 69–144; BP diastolic 35–100
[2017-05-06 05:28] LABS: HEMATOCRIT. 32.1 % (36.0-48.0); HEMOGLOBIN. 9.6 g/dL (12.0-16.0); MEAN CORPUSCULAR HEMOGLOBIN 21.5 pg (28.0-32.0); MEAN CORPUSCULAR VOLUME 71.7 fL (81.0-99.0); MEAN PLATELET VOLUME 8.9 fl (7.4-10.4); PLATELET 283 x1000/uL (130-400); RED BLOOD CELL COUNT 4.48 mill/uL (4.2-5.4); RED CELL DISTRIBUTION WIDTH 27.6 % (11.6-14.6)
[2017-05-06] MEDS: LEVOTHYROXINE SODIUM 100MCG TABLET PO SCH (05:44)
[2017-05-06] MEDS: METOCLOPRAMIDE HCL 10MG/2ML VIAL IV SCH ×3 (05:44→21:37)
[2017-05-06] MEDS: SILDENAFIL CITRATE 20MG TABLET PO SCH ×3 (05:46→21:37)
[2017-05-06 06:25] LABS: TROPONIN I 2.2 ng/mL (0.00-0.04)
[2017-05-06 07:40] LABS: PLATELET ESTIMATE NORMAL
[2017-05-06] MEDS: FUROSEMIDE 40MG/4ML VIAL IVP SCH ×2 (09:03→16:10)
[2017-05-06] MEDS: SENNOSIDES/DOCUSATE SOD 8.6/50MG TABLET PO SCH ×2 (09:04→16:11)
[2017-05-06] MEDS: CHOLECALCIFEROL (D3) 1000 UNIT TABLET PO SCH (09:04)
[2017-05-06] MEDS: MAGNESIUM OXIDE 400MG TABLET NG SCH (09:04)
[2017-05-06] MEDS: PANTOPRAZOLE SODIUM 40 MG/VIAL IV SCH (09:04)
[2017-05-06] MEDS: METHYLPREDNISOLONE SOD SUCC 40 MG/ML VIAL IV SCH (09:04)
[2017-05-06] MEDS: MIDODRINE HCL 5MG TABLET NG SCH ×3 (09:05→16:11)
[2017-05-06] MEDS: MORPHINE SULFATE 4 MG/ML CPJ (NOT FOR IM USE) IV PRN ×3 (11:14→21:38)
[2017-05-06] MEDS: VANCOMYCIN 1250MG in DEXTROSE 5% WATER 250ML IV SCH (12:00)
[2017-05-06] MEDS: NOREPINEPHRINE 8 MG in DEXT 5% WATER 242 ML IV PRN (16:09)
[2017-05-06] MEDS: SODIUM CHL 0.45% + KCL 20MEQ/L 1,000 ML IV SCH (18:22)
[2017-05-06] MEDS: IPRATROPIUM/ALBUTEROL 0.5-3(2.5)MG/3ML NEB HHN PRN (20:34)
[2017-05-07] VITALS (76 sets, daily range): BP systolic 70–149; BP diastolic 46–98
[2017-05-07] MEDS: MORPHINE SULFATE 4 MG/ML CPJ (NOT FOR IM USE) IV PRN ×4 (00:05→23:13)
[2017-05-07] MEDS: IPRATROPIUM/ALBUTEROL 0.5-3(2.5)MG/3ML NEB HHN PRN ×3 (01:13→16:25)
[2017-05-07 05:19] LABS: HEMATOCRIT. 32.8 % (36.0-48.0); MEAN CORPUSCULAR HEMOGLOBIN 21.4 pg (28.0-32.0); MEAN CORPUSCULAR VOLUME 70.1 fL (81.0-99.0); MEAN PLATELET VOLUME 8.8 fl (7.4-10.4); PLATELET 290 x1000/uL (130-400); RED BLOOD CELL COUNT 4.69 mill/uL (4.2-5.4); RED CELL DISTRIBUTION WIDTH 28.7 % (11.6-14.6)
[2017-05-07 05:26] LABS: INR 1.2; PARTIAL THROMBOPLASTIN TIME 25.8 sec (23.4-31.0); PROTHROMBIN TIME 12.1 sec (9.4-11.6)
[2017-05-07] MEDS: SILDENAFIL CITRATE 20MG TABLET PO SCH ×3 (06:00→21:25)
[2017-05-07] MEDS: METOCLOPRAMIDE HCL 10MG/2ML VIAL IV SCH ×3 (06:03→21:25)
[2017-05-07] MEDS: LEVOTHYROXINE SODIUM 100MCG TABLET PO SCH (06:04)
[2017-05-07] MEDS: PANTOPRAZOLE SODIUM 40 MG/VIAL IV SCH (08:31)
[2017-05-07] MEDS: FUROSEMIDE 40MG/4ML VIAL IVP SCH ×2 (08:31→16:55)
[2017-05-07] MEDS: CHOLECALCIFEROL (D3) 1000 UNIT TABLET PO SCH (08:31)
[2017-05-07] MEDS: MAGNESIUM OXIDE 400MG TABLET NG SCH (08:31)
[2017-05-07] MEDS: METHYLPREDNISOLONE SOD SUCC 40 MG/ML VIAL IV SCH (08:31)
[2017-05-07] MEDS: MIDODRINE HCL 5MG TABLET NG SCH ×3 (08:31→16:56)
[2017-05-07] MEDS: SENNOSIDES/DOCUSATE SOD 8.6/50MG TABLET PO SCH ×2 (08:31→16:55)
[2017-05-07] MEDS: NOREPINEPHRINE 8 MG in DEXT 5% WATER 242 ML IV PRN (09:07)
[2017-05-07] MEDS: LORAZEPAM 2MG/ML CPJ IV PRN ×3 (09:34→23:30)
[2017-05-07 10:44] LABS: PLATELET ESTIMATE NORMAL
[2017-05-07] MEDS ORDERED: LIDOCAINE 1%/EPI 1:200,000 10 ML VIAL IJ ONE (10:50)
[2017-05-07] MEDS ORDERED: ROCURONIUM BROMIDE 10MG/ML VIAL 5ML IV ONE (13:11)
[2017-05-08] VITALS (94 sets, daily range): BP systolic 59–143; BP diastolic 39–103
[2017-05-08] MEDS: LORAZEPAM 2MG/ML CPJ IV PRN ×5 (04:02→22:28)
[2017-05-08] MEDS: MORPHINE SULFATE 4 MG/ML CPJ (NOT FOR IM USE) IV PRN ×2 (04:40→13:33)
[2017-05-08] MEDS: SODIUM CHL 0.45% + KCL 20MEQ/L 1,000 ML IV SCH (05:03)
[2017-05-08] MEDS: SILDENAFIL CITRATE 20MG TABLET PO SCH ×3 (06:00→21:22)
[2017-05-08] MEDS: LEVOTHYROXINE SODIUM 100MCG TABLET PO SCH (06:24)
[2017-05-08] MEDS: METOCLOPRAMIDE HCL 10MG/2ML VIAL IV SCH ×3 (06:24→21:21)
[2017-05-08] MEDS: NOREPINEPHRINE 8 MG in DEXT 5% WATER 242 ML IV PRN (06:46)
[2017-05-08] MEDS: IPRATROPIUM/ALBUTEROL 0.5-3(2.5)MG/3ML NEB HHN PRN (07:30)
[2017-05-08] MEDS: PANTOPRAZOLE SODIUM 40 MG/VIAL IV SCH (08:10)
[2017-05-08] MEDS: METHYLPREDNISOLONE SOD SUCC 40 MG/ML VIAL IV SCH (08:10)
[2017-05-08] MEDS: FUROSEMIDE 40MG/4ML VIAL IVP SCH ×2 (08:10→16:31)
[2017-05-08] MEDS: CHOLECALCIFEROL (D3) 1000 UNIT TABLET PO SCH (08:11)
[2017-05-08] MEDS: SENNOSIDES/DOCUSATE SOD 8.6/50MG TABLET PO SCH ×2 (08:11→16:31)
[2017-05-08] MEDS: MIDODRINE HCL 5MG TABLET NG SCH ×3 (08:11→16:31)
[2017-05-08] MEDS: MAGNESIUM OXIDE 400MG TABLET NG SCH (08:11)
[2017-05-08 10:16] LABS: HEMATOCRIT. 31.3 % (36.0-48.0); HEMOGLOBIN. 9.6 g/dL (12.0-16.0); MEAN CORPUSCULAR HEMOGLOBIN 21.1 pg (28.0-32.0); MEAN CORPUSCULAR VOLUME 68.6 fL (81.0-99.0); MEAN PLATELET VOLUME 8.7 fl (7.4-10.4); PLATELET 272 x1000/uL (130-400); RED BLOOD CELL COUNT 4.57 mill/uL (4.2-5.4); RED CELL DISTRIBUTION WIDTH 27.9 % (11.6-14.6)
[2017-05-08 10:55] LABS: PLATELET ESTIMATE NORMAL
[2017-05-08 20:49] LABS: HEMATOCRIT 33.3 % (36.0-48.0); HEMOGLOBIN 10.1 g/dL (12.0-16.0); MEAN CORPUSCULAR VOLUME 69.7 fL (81.0-99.0); PLATELET 278 x1000/uL (130-400); RED BLOOD CELL COUNT 4.78 mill/uL (4.2-5.4); RED CELL DISTRIBUTION WIDTH 27.5 % (11.6-14.6)
[2017-05-09] VITALS (92 sets, daily range): BP systolic 79–126; BP diastolic 39–97
[2017-05-09 02:06] LABS: HEMATOCRIT 31.2 % (36.0-48.0); HEMOGLOBIN 9.5 g/dL (12.0-16.0); MEAN CORPUSCULAR HEMOGLOBIN 21.2 pg (28.0-32.0); MEAN CORPUSCULAR VOLUME 69.6 fL (81.0-99.0); PLATELET 265 x1000/uL (130-400); RED BLOOD CELL COUNT 4.48 mill/uL (4.2-5.4); RED CELL DISTRIBUTION WIDTH 27.8 % (11.6-14.6)
[2017-05-09] MEDS: LORAZEPAM 2MG/ML CPJ IV PRN ×3 (02:19→22:23)
[2017-05-09] MEDS: MORPHINE SULFATE 4 MG/ML CPJ (NOT FOR IM USE) IV PRN (02:20)
[2017-05-09 05:57] LABS: HEMOGLOBIN. 9.5 g/dL (12.0-16.0); MEAN CORPUSCULAR HEMOGLOBIN 21.3 pg (28.0-32.0); MEAN CORPUSCULAR VOLUME 69.7 fL (81.0-99.0); MEAN PLATELET VOLUME 8.5 fl (7.4-10.4); PLATELET 252 x1000/uL (130-400); RED BLOOD CELL COUNT 4.44 mill/uL (4.2-5.4); RED CELL DISTRIBUTION WIDTH 28.3 % (11.6-14.6)
[2017-05-09] MEDS: METOCLOPRAMIDE HCL 10MG/2ML VIAL IV SCH ×3 (05:59→21:39)
[2017-05-09] MEDS: LEVOTHYROXINE SODIUM 100MCG TABLET PO SCH (05:59)
[2017-05-09] MEDS: SILDENAFIL CITRATE 20MG TABLET PO SCH ×3 (05:59→21:03)
[2017-05-09 06:05] LABS: INR 1.2; PARTIAL THROMBOPLASTIN TIME 25.7 sec (23.4-31.0); PROTHROMBIN TIME 12.4 sec (9.4-11.6)
[2017-05-09] MEDS ORDERED: DEXTROSE 50% WATER 50ML SYRINGE IV SCH (07:15)
[2017-05-09] MEDS ORDERED: DEXTROSE 50% WATER 50ML SYRINGE IV ONE (07:33)
[2017-05-09 07:54] LABS: PLATELET ESTIMATE NORMAL
[2017-05-09] MEDS: DEXT 5%/0.45% NACL KCL 20MEQ/L 1,000 ML IV SCH ×2 (09:00→23:47)
[2017-05-09] MEDS: SENNOSIDES/DOCUSATE SOD 8.6/50MG TABLET PO SCH ×2 (09:00→18:13)
[2017-05-09 09:02] LABS: BG CARBOXYHEMOGLOBIN 0.2 % (0.5-1.5); BG DEOXYHEMOGLOBIN 0.9 % (0.0-5.0); BG FRACTION INSPIRED OXYGEN 35; BG HCO3 ACT 30.7 mmol/L (22.0-26.0); BG METHEMOGLOBIN 0.1 % (0.0-1.5); BG OXYGEN SATURATION 99.1 % (92.0-98.5); BG OXYHEMOGLOBIN 98.8 % (94.0-97.0); BG PCO2 40.1 mmHg (35.0-45.0); BG PH 7.502 (7.350-7.450); BG PO2 150.4 mmHg (75.0-100.0); BG SAMPLE SITE RIGHT RADIAL; BG TIDAL VOLUME(mL) 400 mL; BG TOTAL HEMOGLOBIN 10.1 g/dL (12.0-18.0); BG VENT MODE VENT - A/C; BG VENT RATE 14 set
[2017-05-09] MEDS: IPRATROPIUM/ALBUTEROL 0.5-3(2.5)MG/3ML NEB HHN PRN (09:27)
[2017-05-09] MEDS: PANTOPRAZOLE SODIUM 40 MG/VIAL IV SCH (09:55)
[2017-05-09] MEDS: FUROSEMIDE 40MG/4ML VIAL IVP SCH ×2 (09:56→18:14)
[2017-05-09] MEDS: METHYLPREDNISOLONE SOD SUCC 40 MG/ML VIAL IV SCH (09:56)
[2017-05-09] MEDS ORDERED: CEFAZOLIN 1000MG PREMIX 50 ML IV NR (10:00)
[2017-05-09] MEDS ORDERED: SIMETHICONE 40 MG/0.6 ML 30ML ONE (10:17)
[2017-05-09] MEDS ORDERED: SODIUM CHLORIDE 0.9% 10ML VIAL ONE (10:17)
[2017-05-09] MEDS ORDERED: MIDAZOLAM HCL 5 MG/5 ML VIAL ONE (10:33)
[2017-05-09] MEDS ORDERED: FENTANYL CITRATE/PF 50MCG/ML 2ML VIAL ONE (10:34)
[2017-05-09] MEDS ORDERED: MIDAZOLAM HCL 2 MG/2 ML VIAL IV PRN (10:47)
[2017-05-09] MEDS: VANCOMYCIN 1250MG in DEXTROSE 5% WATER 250ML IV SCH (12:19)
[2017-05-09] MEDS: MAGNESIUM OXIDE 400MG TABLET NG SCH (12:19)
[2017-05-09] MEDS: CHOLECALCIFEROL (D3) 1000 UNIT TABLET PO SCH (12:19)
[2017-05-09] MEDS: MIDODRINE HCL 5MG TABLET NG SCH ×2 (12:20→18:14)
[2017-05-10] VITALS (94 sets, daily range): BP systolic 75–133; BP diastolic 30–98
[2017-05-10] MEDS: NOREPINEPHRINE 8 MG in DEXT 5% WATER 242 ML IV PRN (00:35)
[2017-05-10] MEDS: MORPHINE SULFATE 4 MG/ML CPJ (NOT FOR IM USE) IV PRN (01:44)
[2017-05-10] MEDS: LORAZEPAM 2MG/ML CPJ IV PRN ×3 (03:57→23:45)
[2017-05-10] MEDS: SILDENAFIL CITRATE 20MG TABLET PO SCH ×3 (05:21→22:40)
[2017-05-10] MEDS: LEVOTHYROXINE SODIUM 100MCG TABLET PO SCH (05:38)
[2017-05-10] MEDS: METOCLOPRAMIDE HCL 10MG/2ML VIAL IV SCH ×3 (05:38→22:27)
[2017-05-10 05:54] LABS: HEMATOCRIT. 31.8 % (36.0-48.0); HEMOGLOBIN. 9.6 g/dL (12.0-16.0); MEAN CORPUSCULAR HEMOGLOBIN 21.5 pg (28.0-32.0); MEAN CORPUSCULAR VOLUME 70.7 fL (81.0-99.0); PLATELET 240 x1000/uL (130-400); RED BLOOD CELL COUNT 4.49 mill/uL (4.2-5.4); RED CELL DISTRIBUTION WIDTH 28.7 % (11.6-14.6)
[2017-05-10 07:15] LABS: PLATELET ESTIMATE NORMAL
[2017-05-10] MEDS: PANTOPRAZOLE SODIUM 40 MG/VIAL IV SCH (08:42)
[2017-05-10] MEDS: MAGNESIUM OXIDE 400MG TABLET NG SCH (08:42)
[2017-05-10] MEDS: SENNOSIDES/DOCUSATE SOD 8.6/50MG TABLET PO SCH ×2 (08:42→16:39)
[2017-05-10] MEDS: MIDODRINE HCL 5MG TABLET NG SCH ×3 (08:42→16:39)
[2017-05-10] MEDS: CHOLECALCIFEROL (D3) 1000 UNIT TABLET PO SCH (08:42)
[2017-05-10] MEDS: FUROSEMIDE 40MG/4ML VIAL IVP SCH ×2 (08:42→16:39)
[2017-05-10] MEDS: METHYLPREDNISOLONE SOD SUCC 40 MG/ML VIAL IV SCH (08:43)
[2017-05-10] MEDS: FLUDROCORTISONE ACETATE 0.1MG TABLET GT SCH (12:24)
[2017-05-10] MEDS: DEXT 5%/0.45% NACL KCL 20MEQ/L 1,000 ML IV SCH ×2 (12:25→22:34)
[2017-05-10] MEDS ORDERED: NOREPINEPHRINE 8 MG in DEXT 5% WATER 242 ML IV PRN (14:37)
[2017-05-11] VITALS (81 sets, daily range): BP systolic 67–135; BP diastolic 36–87
[2017-05-11] MEDS: SILDENAFIL CITRATE 20MG TABLET PO SCH ×2 (05:51→13:01)
[2017-05-11 05:59] LABS: CHLORIDE 96 mEq/L (98-107)
[2017-05-11] MEDS: METOCLOPRAMIDE HCL 10MG/2ML VIAL IV SCH ×2 (05:59→13:01)
[2017-05-11] MEDS: LEVOTHYROXINE SODIUM 100MCG TABLET PO SCH (05:59)
[2017-05-11 06:04] LABS: HEMATOCRIT. 32.8 % (36.0-48.0); HEMOGLOBIN. 9.7 g/dL (12.0-16.0); MEAN CORPUSCULAR HEMOGLOBIN 21.2 pg (28.0-32.0); MEAN CORPUSCULAR VOLUME 72.1 fL (81.0-99.0); PLATELET 209 x1000/uL (130-400); RED BLOOD CELL COUNT 4.55 mill/uL (4.2-5.4); RED CELL DISTRIBUTION WIDTH 28.1 % (11.6-14.6)
[2017-05-11 06:14] LABS: CARBON DIOXIDE 26 mEq/L (21-32); PHOSPHORUS 1.9 mg/dL (2.5-4.9); T4 FREE 0.93 ng/dL (0.76-1.46)
[2017-05-11] MEDS ORDERED: DEXT 5%/0.9% NACL 1,000 ML IV SCH (06:45)
[2017-05-11] MEDS: FLUDROCORTISONE ACETATE 0.1MG TABLET GT SCH (09:00)
[2017-05-11] MEDS: FUROSEMIDE 40MG/4ML VIAL IVP SCH ×2 (09:00→16:18)
[2017-05-11] MEDS: CHOLECALCIFEROL (D3) 1000 UNIT TABLET PO SCH (09:00)
[2017-05-11] MEDS: SENNOSIDES/DOCUSATE SOD 8.6/50MG TABLET PO SCH ×2 (09:00→16:18)
[2017-05-11] MEDS: MIDODRINE HCL 5MG TABLET NG SCH ×3 (09:00→16:31)
[2017-05-11] MEDS: MAGNESIUM OXIDE 400MG TABLET NG SCH (09:00)
[2017-05-11] MEDS: METHYLPREDNISOLONE SOD SUCC 40 MG/ML VIAL IV SCH (09:01)
[2017-05-11] MEDS: PANTOPRAZOLE SODIUM 40 MG/VIAL IV SCH (09:01)
[2017-05-11 10:47] LABS: PLATELET ESTIMATE NORMAL
[2017-05-11] MEDS ORDERED: SODIUM PHOS,M-BASIC-D-BASIC 10 MM in DEXT 5% WATER 246.6667 ML IV SCH (12:00)
[2017-05-12] MEDS ORDERED: LEVOTHYROXINE SODIUM 125MCG TABLET PO SCH (06:30)
== END 2017-05-11 19:50 | DRG 4 ==
LOC: ER 17:55 → OBSVTOIN 20:07 → 8WST 20:07 → INTOOBSV 20:07 → ENRESERV 21:19 → 5EST 04-23 07:45 → MICUNO 04-25 16:00 → UNDODISIN 05-11 19:50
PROVIDERS: ADMIT Internal Medicine; ATTEND Internal Medicine
PROC: 30233N1 Transfusion of Nonautologous Red Blood Cells into Peripheral Vein, Percutaneous Approach (ICD-10-PCS; 2017-04-20)
PROC: 30233N1 Transfusion of Nonautologous Red Blood Cells into Peripheral Vein, Percutaneous Approach (ICD-10-PCS; 2017-04-24)
PROC: 5A1955Z Respiratory Ventilation, Greater than 96 Consecutive Hours (ICD-10-PCS; principal; 2017-04-25)
PROC: 0BH17EZ Insertion of Endotracheal Airway into Trachea, Via Natural or Artificial Opening (ICD-10-PCS; 2017-04-25)
PROC: 5A09357 Assistance with Respiratory Ventilation, Less than 24 Consecutive Hours, Continuous Positive Airway Pressure (ICD-10-PCS; 2017-04-25)
PROC: 05H933Z Insertion of Infusion Device into Right Brachial Vein, Percutaneous Approach (ICD-10-PCS; 2017-04-26)
PROC: B54MZZA Ultrasonography of Right Upper Extremity Veins, Guidance (ICD-10-PCS; 2017-04-26)
PROC: 0B110F4 Bypass Trachea to Cutaneous with Tracheostomy Device, Open Approach (ICD-10-PCS; 2017-05-07)
PROC: 0DH63UZ Insertion of Feeding Device into Stomach, Percutaneous Approach (ICD-10-PCS; 2017-05-09)
DX: K92.2 Gastrointestinal hemorrhage, unspecified (principal); R65.21 Severe sepsis with septic shock; A41.9 Sepsis, unspecified organism; G93.40 Encephalopathy, unspecified; E87.4 Mixed disorder of acid-base balance; E46 Unspecified protein-calorie malnutrition; J96.21 Acute and chronic respiratory failure with hypoxia; J18.9 Pneumonia, unspecified organism; G93.49 Other encephalopathy; J96.22 Acute and chronic respiratory failure with hypercapnia; I13.0 Hypertensive heart and chronic kidney disease with heart failure and stage 1 through stage 4 chronic kidney disease, or unspecified chronic kidney disease; Z99.11 Dependence on respirator [ventilator] status; I47.2 Ventricular tachycardia; N17.9 Acute kidney failure, unspecified; E87.1 Hypo-osmolality and hyponatremia; F23 Brief psychotic disorder; I48.1 Persistent atrial fibrillation; J44.0 Chronic obstructive pulmonary disease with (acute) lower respiratory infection; J44.1 Chronic obstructive pulmonary disease with (acute) exacerbation; K56.7 Ileus, unspecified; Z68.1 Body mass index [BMI] 19.9 or less, adult; I48.92 Unspecified atrial flutter; K26.9 Duodenal ulcer, unspecified as acute or chronic, without hemorrhage or perforation; I50.9 Heart failure, unspecified; D50.9 Iron deficiency anemia, unspecified; E03.9 Hypothyroidism, unspecified; E78.5 Hyperlipidemia, unspecified; E83.42 Hypomagnesemia; E87.5 Hyperkalemia; I48.2 Chronic atrial fibrillation; I27.20 Pulmonary hypertension, unspecified; I49.3 Ventricular premature depolarization; K29.60 Other gastritis without bleeding; K57.30 Diverticulosis of large intestine without perforation or abscess without bleeding; R62.7 Adult failure to thrive; N18.9 Chronic kidney disease, unspecified; Z78.1 Physical restraint status; Z79.01 Long term (current) use of anticoagulants; I25.2 Old myocardial infarction; Z79.899 Other long term (current) drug therapy; K59.00 Constipation, unspecified; I08.1 Rheumatic disorders of both mitral and tricuspid valves; R13.10 Dysphagia, unspecified
CPT/HCPCS: 31500; 36415; 36569; 36600; 71010; 74000; 74176; 76937; 78580; 80048; 80053; 80202; 82140; 82270; 82375; 82550; 82553; 82607; 82728; 82746; 82805; 82962; 83540; 83550; 83735; 83880; 84100; 84439; 84443; 84484; 85014; 85018; 85025; 85027; 85049; 85384; 85610; 85730; 86850; 86900; 86920; 87040; 87070; 87086; 93005; 93306; 93970; 94002; 94003; 94640; 94660; 94664; 96374; 99291; A4216; A6261; C1725; C9113; J0330; J0690; J1940; J2060; J2250; J2270; J2405; J2543; J2765; J2920; J3010; J3370; J3475; J3480; J3490; J7030; J7042; J7050; J7060; J7620; P9016; A4315